=== PATIENT | female | born 1965 | race Caucasian/White ===

== ENCOUNTER → 2018-12-30 | Outpatient (CLI) | payer BC ==
[~2018-12-30] MED LIST: DOCU100T PO; FERR142T5 PO; HYDR-3237 PO; IBUP-1223 PO; OMEP20TA62 PO; PROC10TA2 PO; SIME125T50 PO; VENL37.511 PO
[2018-12-30 10:59] LABS: INTERNATIONAL NORMALIZED RATIO 0.96 (0.93-1.1); PROTHROMBIN TIME 10.1 Seconds (9.6-11.5)
[2018-12-30 11:26] LABS: CHLORIDE 109 mmol/L (98-107)
[2018-12-30 11:31] LABS: ALANINE AMINOTRANSFERASE 26 U/L (12-78); ALBUMIN 3.8 g/dL (3.4-5.0); ALKALINE PHOSPHATASE 81 U/L (45-117); ANION GAP 4 mmol/L (5-15); BILIRUBIN,TOTAL 0.3 mg/dL (0.2-1.0); CALCIUM 8.5 mg/dL (8.5-10.1); TOTAL PROTEIN 6.9 g/dL (6.4-8.2)
[2018-12-30 11:38] LABS: MEAN CORPUSCULAR HEMOGLOBIN 17.6 pg (27.0-34.8); MEAN PLATELET VOLUME 7.5 fL (7.4-10.4); PLATELET COUNT 356 x10^3/uL (130-400); RED CELL DISTRIBUTION WIDTH 24.5 % (9.6-15.2)
[2018-12-30 11:39] LABS: MD YES; MEAN CORPUSCULAR HGB CONC 28.4 g/dL (32.4-35.8)
[2018-12-30 12:08] LABS: ANISOCYTOSIS 2+; EOS#(MANUAL) 0.25 x10^3/uL (0.0-0.4); EOS% (MANUAL) 6 % (1-7); LYMPH#(MANUAL) 2.02 x10^3/uL (1-3.4); LYMPHS% (MANUAL) 48 % (22-44); MICROCYTOSIS 2+; MONOS#(MANUAL) 0.21 x10^3/uL (0.3-2.7); MONOS% (MANUAL) 5 % (2-9); SEG#(MANUAL) 1.72 x10^3/uL (1.8-6.8); SEGS% (MANUAL) 41 % (42-75)
[2018-12-30 12:09] LABS: HYPOCHROMIA 3+
[2018-12-30 12:11] LABS: <PLATELET ESTIMATE> ADEQUATE
== END | disposition home or self-care (01) ==
LOC: STAR 09:47
PROVIDERS: ATTEND Specialist
DX: Z01.818 Encounter for other preprocedural examination (principal); N83.209 Unspecified ovarian cyst, unspecified side; N95.0 Postmenopausal bleeding; R19.01 Right upper quadrant abdominal swelling, mass and lump
CPT/HCPCS: 36415; 71046; 80053; 85025; 85610; 85730; 93005

== ENCOUNTER 2019-01-06 05:42 | Day surgery (SDC) | payer BC ==
[~2019-01-06] VITALS: Ht 175.3 cm; Wt 90.7 kg
[2019-01-06] MEDS ORDERED: LACTATED RINGERS 1,000 ML IV SCH (06:16)
[2019-01-06] MEDS ORDERED: BUPIVACAINE/PF 0.25% ONE (06:51)
[2019-01-06] MEDS ORDERED: HEPARIN 1,000 UNITS/ML, 10ML ONE (06:52)
[2019-01-06] MEDS ORDERED: EPINEPHRINE 1 MG/ML, 1ML ONE (06:52)
[2019-01-06 07:05] LABS: HCG UR SG 1.021 (1.003-1.030)
[2019-01-06] MEDS ORDERED: FENTANYL PF 250 MCG/5ML ONE ×2 (07:22→08:35)
[2019-01-06] MEDS ORDERED: MIDAZOLAM 1 MG/ML, 2ML ONE (07:22)
[2019-01-06] MEDS ORDERED: PROPOFOL 10 MG/ML, 20ML ONE (07:32)
[2019-01-06] MEDS ORDERED: NEOSTIGMINE 1 MG/ML, 10ML ONE (07:32)
[2019-01-06] MEDS ORDERED: SUCCINYLCHOLINE 20 MG/ML, 10ML ONE (07:32)
[2019-01-06] MEDS ORDERED: ONDANSETRON 2MG/ML, 2ML ONE (07:32)
[2019-01-06] MEDS ORDERED: CEFAZOLIN 1,000 MG ONE (07:32)
[2019-01-06] MEDS ORDERED: ROCURONIUM 10MG/ML,5ML ONE (07:32)
[2019-01-06] MEDS ORDERED: DEXAMETHASONE 4 MG/ML, 1ML ONE (07:32)
[2019-01-06] MEDS ORDERED: GLYCOPYRROLATE 0.2MG/1ML, 5ML ONE (07:32)
[2019-01-06] MEDS ORDERED: PHENYLEPHRINE 10 MG/ML ONE (07:46)
[2019-01-06] MEDS ORDERED: ACETAMINOPHEN 325 MG TABLET PO PRN (08:00)
[2019-01-06] MEDS ORDERED: HYDROmorphone 2 MG/ML, 1ML IVPush PRN (08:00)
[2019-01-06] MEDS ORDERED: ONDANSETRON 2MG/ML, 2ML IV PRN (08:00)
[2019-01-06] MEDS ORDERED: LORazepam 2 MG/ML, 1ML IVPush PRN (08:00)
[2019-01-06] MEDS ORDERED: OXYcodone 5 MG/5 ML ORAL.SOL UDC PO PRN (08:00)
[2019-01-06] MEDS ORDERED: PROMETHAZINE 25 MG/ML, 1ML IV PRN (08:00)
[2019-01-06] MEDS ORDERED: ONDANSETRON ODT 8 MG PO PRN (08:00)
[2019-01-06] MEDS ORDERED: SUGAMMADEX 200 MG/2 ML IVPush ONE (09:44)
[2019-01-06] MEDS ORDERED: FENTANYL PF 100 MCG/2ML ONE (10:24)
[2019-01-06] MEDS ORDERED: ACETAMINOPHEN 650 MG/20.3 ML UDC ONE (10:24)
[2019-01-06] MEDS ORDERED: OXYcodone 5 MG/5 ML ORAL.SOL UDC ONE (10:24)
[2019-01-06] MEDS: FENTANYL PF 100 MCG/2ML IV PRN ×3 (10:27→10:50)
[2019-01-06] MEDS ORDERED: DEXTROSE 50%, 50ML SYRINGE IVPush ONE (11:00)
[2019-01-06] MEDS ORDERED: OXYcodone/APAP 7.5/325MG TABLET PO PRN (13:00)
== END 2019-01-06 14:50 | disposition home or self-care (01) ==
LOC: OUT 05:42
PROVIDERS: ATTEND Specialist
DX: D27.1 Benign neoplasm of left ovary (principal); D27.0 Benign neoplasm of right ovary; N80.0 Endometriosis of uterus; N88.8 Other specified noninflammatory disorders of cervix uteri; N84.1 Polyp of cervix uteri; N73.6 Female pelvic peritoneal adhesions (postinfective); K21.9 Gastro-esophageal reflux disease without esophagitis; Z90.710 Acquired absence of both cervix and uterus; Z88.5 Allergy status to narcotic agent; Z88.8 Allergy status to other drugs, medicaments and biological substances; Z88.1 Allergy status to other antibiotic agents
CPT/HCPCS: 36415; 58552; 81025; 86850; 86900; 88112; 88305; 88307; 88331; J0171; J0330; J0690; J1100; J1644; J2250; J2370; J2405; J2704; J2710; J3010; J3490; J7120